=== PATIENT | male | born 1950 | race Caucasian/White ===

== ENCOUNTER 2019-05-31 06:22 | Observation (INO) ==
[2019-05-31] MEDS ORDERED: Famotidine 20 MG/2 ML VIAL IVP ONE (06:45)
[2019-05-31] MEDS ORDERED: CeFAZolin Syr 2,000MG/20 ML 2,000 MG/20 ML SYRINGE IVPB ONE (06:56)
[2019-05-31] MEDS ORDERED: Ringers Solution, Lactated 1,000 ML IVC SCH ×2 (07:00→14:10)
[2019-05-31] MEDS ORDERED: *HR* Remifentanil 1 MG VIAL IVP ONE (07:07)
[2019-05-31] MEDS ORDERED: *HR* HYDROMORPHONE 2 MG/ML VIAL ONE (07:07)
[2019-05-31] MEDS ORDERED: Ondansetron 4 MG/2 ML VIAL ONE (07:07)
[2019-05-31] MEDS ORDERED: Dexamethasone 4 MG/ML VIAL ONE (07:07)
[2019-05-31] MEDS ORDERED: Lidocaine -MPF 2% 2 ML VIAL ONE (07:07)
[2019-05-31] MEDS ORDERED: *HR* Propofol 200 MG/20 ML VIAL IVP ONE (07:07)
[2019-05-31] MEDS ORDERED: *HR* FentaNYL (PF) 100 MCG/2 ML VIAL ONE (07:07)
[2019-05-31] MEDS ORDERED: *HR* Rocuronium Bromide 50 MG/5 ML VIAL ONE (07:08)
[2019-05-31] MEDS ORDERED: *HR* Succinylcholine 200 MG/10 ML VIAL IVP ONE (07:08)
[2019-05-31] MEDS ORDERED: *HR* Labetalol 20 MG/4 ML SYRINGE IVP PRN (07:17)
[2019-05-31] MEDS ORDERED: *HR* HYDROmorphone (PF) 1 MG/ML SYRINGE IVP PRN (07:17)
[2019-05-31] MEDS ORDERED: Ondansetron 4 MG/2 ML VIAL IVP PRN ×2 (07:17→14:10)
[2019-05-31] MEDS ORDERED: *HR* Vasopressin 20 UNIT/ML VIAL ONE (08:07)
[2019-05-31] MEDS ORDERED: Bacitracin 50,000 UNIT, Polymyxin B Sulfate 500,000 UNIT, Sodium Chloride IRRigation 1,... IR ONE (08:15)
[2019-05-31] MEDS ORDERED: EPHEDrine 50 MG/ML VIAL ONE (11:02)
[2019-05-31] MEDS ORDERED: Neostigmine Methylsulfate 3 MG/3 ML SYRINGE ONE (12:29)
[2019-05-31] MEDS ORDERED: NON-FORMULARY MEDICATION 1 EACH EACH (Testosterone Cypionate [Depo-Testosterone] 200 MG) IM SCH (14:10)
[2019-05-31] MEDS ORDERED: Naloxone 0.4 MG/ML INJ IVP PRN (14:10)
[2019-05-31] MEDS ORDERED: *HR* OxyCODONE Immed Rel 5 MG TABLET PO PRN (14:10)
[2019-05-31] MEDS: ceFAZolin 2,000 MG in 0.9 % Sodium Chloride 100 ML IVPB SCH ×2 (16:29→23:35)
[2019-05-31] MEDS: *HR* HYDROcodone/Acet 5/325 mg TABLET PO PRN (16:37)
[2019-06-01 04:40] LABS: Basophils % 0.1 %; Hematocrit 31.8 % (37.5-50.1); Hemoglobin 10.7 g/dL (12.9-16.9); Immature Granulocytes % 0.3 % (0-4); Lymphocytes # 1.1 K/mcL (0.6-4.6); Lymphocytes % 7.7 %; Mean Corpuscular HGB Conc 33.6 g/dL (31.6-35.5); Mean Corpuscular Volume 103.9 fL (83.0-100.0); Mean Platelet Volume 10.8 fL (9.4-12.4); Monocytes # 0.9 K/mcL (0.0-1.3); Monocytes % 6.7 %; Neutrophils # 11.9 K/mcL (1.6-8.9); Platelet Count 109 K/mcL (140-400); Red Blood Count 3.06 M/mcL (4.19-5.50); Red Cell Distribution Width 13.6 % (11.5-14.5); Segmented Neutrophils % 85.2 %
[2019-06-01 04:53] LABS: BUN/Creatinine Ratio 15 (6-26); Blood Urea Nitrogen 15 mg/dL (8-23); Calcium 8.2 mg/dL (8.6-10.3); Carbon Dioxide 25 mEq/L (23-29); Chloride 101 mEq/L (98-107); Glucose 142 mg/dL (70-105); Osmolality,Calculated 271 (280-300); Sodium 129 mEq/L (136-145); eGFR For African Americans > 60 (> 60); eGFR For Non-African Americans > 60 (> 60)
[2019-06-01] MEDS: amLODIPine 5 MG TABLET PO SCH (07:39)
[2019-06-01] MEDS: Multivit/Ca/Min/Fe/FA 1 TAB TABLET PO SCH (07:39)
[2019-06-01] MEDS: atenoloL 50 MG TABLET PO SCH (07:39)
[2019-06-01] MEDS: lisinopriL 20 MG TABLET PO SCH (07:40)
[2019-06-01] MEDS: Magnesium Oxide 400 MG TABLET PO SCH ×2 (07:40→19:57)
[2019-06-01] MEDS: Famotidine 20 MG TABLET PO SCH (07:40)
[2019-06-01] MEDS: Furosemide 20 MG TABLET PO SCH (07:40)
[2019-06-01] MEDS: Acetaminophen 325 MG TABLET PO PRN ×2 (16:39→22:37)
[2019-06-02] MEDS: *HR* HYDROcodone/Acet 5/325 mg TABLET PO PRN (07:29)
[2019-06-02] MEDS: Famotidine 20 MG TABLET PO SCH (07:55)
[2019-06-02] MEDS: Multivit/Ca/Min/Fe/FA 1 TAB TABLET PO SCH (07:55)
[2019-06-02] MEDS: Furosemide 20 MG TABLET PO SCH (07:56)
[2019-06-02] MEDS: lisinopriL 20 MG TABLET PO SCH (07:56)
[2019-06-02] MEDS: Magnesium Oxide 400 MG TABLET PO SCH (07:56)
[2019-06-02] MEDS: amLODIPine 5 MG TABLET PO SCH (07:56)
[2019-06-02] MEDS: atenoloL 50 MG TABLET PO SCH (07:56)
[2019-06-02 08:46] VITALS: BP 128/68
== END 2019-06-02 11:41 | disposition home or self-care (01) ==
LOC: 3NENU 06:22 → SAMDAY 06:22 → 3NENU 14:01
PROVIDERS: ADMIT Orthopaedic Surgery Orthopaedic Surgery of the Spine; ATTEND Orthopaedic Surgery Orthopaedic Surgery of the Spine